=== PATIENT | female | born 1995 | race Caucasian/White ===

== ENCOUNTER 2019-12-12 12:55 | Emergency (ER) | payer BC, OTHER ==
[2019-12-12] MEDS ORDERED: KETOROLAC 60 MG/2 ML VIAL IM ONE (13:15)
[2019-12-12] MEDS ORDERED: diphenhydrAMINE 25 MG TAB (BENADRYL) PO ONE (13:15)
[2019-12-12] MEDS ORDERED: PROCHLORPERAZINE 10 MG/2ML INJ (COMPAZINE) IM ONE (13:15)
--- NOTE | 2019-12-12 13:55 | ED Headache ---
General Chief Complaint: Head/Cervical Problems Stated Complaint: HEADACHE;NAUSEA Nursing Triage Note: Started having headache at 1130 this morning. Took 1500 mg of tylenol without relief. States she gets migraines 2x monthly and this feels like a normal migraine. Pain is rated at 8/10 Nursing Sepsis Screen: No Definite Risk History of Present Illness Date Seen by Provider: Dec 12, 2019 Time Seen by Provider: 13:00 Initial Comments The patient is a 24-year-old female with a history of very frequent migraine headaches who presents for evaluation of a left sided, gradual onset migraine headache with onset over the last few hours. Associated photophobia, phonophobia and nausea. No associated fevers, vomiting, upper respiratory congestion/rhinorrhea, cough, focal weakness, numbness, tingling, neck stiffness/pain/meningismus (patient ranges her neck fully in all dimensions without discomfort or distress), vision changes, shortness of breath or chest pain, injury or trauma to her head recently. Patient states that this migraine feels very similar to the migraines that she frequently has to go to the ED for in [place] where she lives. Tylenol tried prior to arrival without relief of symptoms. Allergies and Home Medications Allergies Coded Allergies: No Known Drug Allergies (Unverified , 12/12/19) Patient Home Medication List Home Medication List Reviewed: Yes Review of Systems Review of Systems Constitutional: see HPI All Other Systems Reviewed Negative Unless Noted: Yes (Negative excepted noted.) Past Lszkgwk-Dgmhwd-Dqhydl Hx Past Med/Social Hx: Reviewed Nursing Past Med/Soc Hx Patient Social History Alcohol Use: Denies Use Recreational Drug Use: No Smoking Status: Never a Smoker 2nd Hand Smoke Exposure: No Recent Foreign Travel: No Contact w/Someone Who Travel: No Recent Infectious Disease Expo: No Recent Hopitalizations: No Physical Abuse: No Sexual Abuse: No Mistreated: No Fear: No Seasonal Allergies Seasonal Allergies: No Past Medical History Surgeries: Yes Adenoidectomy, Tonsillectomy Respiratory: No Cardiac: No Neurological: Yes Headaches /Migraines Genitourinary: No Gastrointestinal: No Musculoskeletal: No Endocrine: No HEENT: No Cancer: No Psychosocial: Yes Depression Family Medical History Reviewed Nursing Family Hx Physical Exam Vital Signs Vital Signs - First Documented 12/12/19 13:02 Pulse 75 Resp 16 B/P (MAP) 156/93 (114) Pulse Ox 98 Capillary Refill : Less Than 3 Seconds Height, Weight, BMI Height: '" Weight: lbs. oz. kg; BMI Method: General Appearance: no apparent distress Comments Young female appearing nontoxic and in no acute distress. Head is no cephalic and atraumatic. Neck is supple and nontender. Oropharynx is moist. Lungs are clear to auscultation at all stations. There is a normal S1 and S2 without rubs or gallops and capillary refill is appropriate, less than 2 seconds globally. Abdomen is soft, nontender nondistended. Skin is warm and dry without cyanosis, clubbing or edema. Psychiatrically, the patient didn't straights appropriate mood and affect and is alert. Neurologically, cranial nerves II through XII are intact and there are no lateralizing deficits noted. Speech is normal. Language is normal. Coordination is normal. There is no dysmetria with hevvcj-hi-yjet or pkre-bt-ylea bilaterally. Strength is 5 out of 5 in all joints of bilateral upper and lower extremity. Sensation is intact light touch in bilateral upper and lower extremity. The patient ambulates with a narrow, steady gait here in the emergency department. She is alert and oriented 4. Progress/Results/Core Measures Results/Orders My Orders Orders - YVONNE VALLEJO MD Prochlorperazine Injection (Compazine In (12/12/19 13:15) Diphenhydramine Tablet (Benadryl Tablet) (12/12/19 13:15) Ketorolac Injection (Toradol Injection) (12/12/19 13:15) Medications Given in ED Current Medications Medications Dose Ordered Sig/Rebekah Route Start Time Stop Time Status Last Admin Dose Admin Diphenhydramine HCl 25 mg ONCE ONCE PO 12/12/19 13:15 12/12/19 13:16 DC 12/12/19 13:16 25 MG Ketorolac Tromethamine 60 mg ONCE ONCE IM 12/12/19 13:15 12/12/19 13:16 DC 12/12/19 13:16 60 MG Prochlorperazine Edisylate 10 mg ONCE ONCE IM 12/12/19 13:15 12/12/19 13:16 DC 12/12/19 13:16 10 MG Vital Signs/I&O 12/12/19 13:02 Pulse 75 Resp 16 B/P (MAP) 156/93 (114) Pulse Ox 98 Blood Pressure Mean: 114 Progress Progress Note : Time: 13:56 Progress Note 24-year-old female who presents for acute on chronic left-sided headache which she states feels identical to her typical migraines. No red flags for headache today. Have treated with Compazine, Benadryl, Toradol and patient feels quite a bit better upon reassessment. Headache pain is considerably improved. She feels culpable going home. We will proceed with discharge home at this time. She is counseled that she feels worse is that of better or develops other new symptoms of concern that she will need to return to the emergency department immediately for reevaluation. All questions are answered. Departure Impression Primary Impression: Headache Qualified Codes: R51 - Headache Disposition: 01 HOME, SELF-CARE Condition: Improved Departure-Patient Inst. Patient Instructions: Headache, Adult (DC) Add. Discharge Instructions: Follow-up very closely with your primary care physician in the office in the next 2-4 days for reevaluation of your symptoms and a discussion of next best steps in care. As we discussed, you may wish to discuss with your primary doctor whether a medicine to prevent your headaches would be worthwhile. Drink plenty fluids and get plenty of rest. Return to the emergency department right away with worsening symptoms of any kind or with any other new symptoms of concern. YVONNE VALLEJO MD Dec 12, 2019 13:55
[2019-12-12 14:02] VITALS: BP 158/108
== END 2019-12-12 14:04 | disposition home or self-care (01) ==
LOC: ER FS 12:57
DX: R51.9 Headache, unspecified (principal)
CPT/HCPCS: 99284

== ENCOUNTER 2022-01-14 18:31 | Emergency (ER) | payer BC ==
[~2022-01-14] VITALS: Ht 172 cm; Wt 151.0 kg
--- NOTE | 2022-01-14 18:35 | ED Abdominal Pain ---
General Stated Complaint: ABD PAIN POST SURGERGY History of Present Illness Date Seen by Provider: Jan 14, 2022 Time Seen by Provider: 18:35 Initial Comments 26-year-old female presents with left upper quadrant abdominal pain. Patient reports that 4 days ago she had gastric bypass surgery at [facility] in [place]. Patient reports that she is got some nausea. That she was set on the couch late afternoon when the pain just became intense. She has tried her oxycodone with minimal relief along with her Levsin. She also had a Zofran earlier today. Allergies and Home Medications Allergies Coded Allergies: No Known Drug Allergies (Unverified , 12/12/19) Patient Home Medication List Home Medication List Reviewed: Yes Review of Systems Review of Systems Constitutional: No chills Respiratory: No Symptoms Reported Cardiovascular: No Symptoms Reported Gastrointestinal: See HPI, Abdominal Pain, Nausea Genitourinary: No Symptoms Reported Musculoskeletal: no symptoms reported Skin: no symptoms reported Psychiatric/Neurological: No Symptoms Reported Past Utttchz-Grlxqf-Cpltfd Hx Seasonal Allergies Seasonal Allergies: No Past Medical History Surgeries: Yes Adenoidectomy, Tonsillectomy Respiratory: No Cardiac: No Neurological: Yes Headaches /Migraines Genitourinary: No Gastrointestinal: No Musculoskeletal: No Endocrine: No HEENT: No Cancer: No Psychosocial: Yes Depression Physical Exam Vital Signs Vital Signs - First Documented 01/14/22 19:03 Temp 36.5 Pulse 106 Resp 16 B/P (MAP) 137/74 (95) Pulse Ox 99 Capillary Refill : Height/Weight/BMI Height: '" Weight: lbs. oz. kg; BMI Method: General Appearance: WD/WN, no apparent distress Respiratory: lungs clear, normal breath sounds Cardiovascular: normal peripheral pulses, regular rate, rhythm Gastrointestinal: soft, tenderness (Epigastric, left upper quad) Extremities: normal range of motion Neurologic/Psychiatric: alert, normal mood/affect, oriented x 3 Skin: normal color, warm/dry Progress/Results/Core Measures Results/Orders Lab Results Laboratory Tests Test 01/14/22 18:51 Range/Units White Blood Count 10.7 4.3-11.0 10^3/uL Red Blood Count 4.99 3.80-5.11 10^6/uL Hemoglobin 14.6 11.5-16.0 g/dL Hematocrit 43 35-52 % Mean Corpuscular Volume 86 80-99 fL Mean Corpuscular Hemoglobin 29 25-34 pg Mean Corpuscular Hemoglobin Concent 34 32-36 g/dL Red Cell Distribution Width 12.6 10.0-14.5 % Platelet Count 269 130-400 10^3/uL Mean Platelet Volume 10.8 9.0-12.2 fL Immature Granulocyte % (Auto) 0 % Neutrophils (%) (Auto) 59 42-75 % Lymphocytes (%) (Auto) 33 12-44 % Monocytes (%) (Auto) 6 0-12 % Eosinophils (%) (Auto) 1 0-10 % Basophils (%) (Auto) 1 0-10 % Neutrophils # (Auto) 6.3 1.8-7.8 10^3/uL Lymphocytes # (Auto) 3.6 1.0-4.0 10^3/uL Monocytes # (Auto) 0.7 0.0-1.0 10^3/uL Eosinophils # (Auto) 0.2 0.0-0.3 10^3/uL Basophils # (Auto) 0.1 0.0-0.1 10^3/uL Immature Granulocyte # (Auto) 0.0 0.0-0.1 10^3/uL Sodium Level 138 135-145 MMOL/L Potassium Level 3.6 3.6-5.0 MMOL/L Chloride Level 101 98-107 MMOL/L Carbon Dioxide Level 25 21-32 MMOL/L Anion Gap 12 5-14 MMOL/L Blood Urea Nitrogen 10 7-18 MG/DL Creatinine 0.67 0.60-1.30 MG/DL Estimat Glomerular Filtration Rate 125 BUN/Creatinine Ratio 15 Glucose Level 104 70-105 MG/DL Calcium Level 9.7 8.5-10.1 MG/DL Corrected Calcium 9.5 8.5-10.1 MG/DL Magnesium Level 1.9 1.6-2.4 MG/DL Total Bilirubin 0.4 0.1-1.0 MG/DL Aspartate Amino Transf (AST/SGOT) 13 5-34 U/L Alanine Aminotransferase (ALT/SGPT) 26 0-55 U/L Alkaline Phosphatase 58 40-136 U/L Total Protein 7.8 6.4-8.2 GM/DL Albumin 4.3 3.2-4.5 GM/DL Lipase 40 8-78 U/L Serum Test, Qualitative NEGATIVE NEGATIVE My Orders Orders - REEDER,THAO L DO Cbc With Automated Diff (01/14/22 18:42) Comprehensive Metabolic Panel (01/14/22 18:42) Lipase (01/14/22 18:42) Magnesium (01/14/22 18:42) Lactated Ringers (Lr 1000 Ml Iv Solution (01/14/22 18:42) Fentanyl Inj (Sublimaze Injection) (01/14/22 18:42) Promethazine Injection (Phenergan Injec (01/14/22 18:55) Ct Abdomen/Pelvis W (01/14/22 19:20) Hcg,Qualitative Serum (01/14/22 19:22) Iohexol Injection (Omnipaque 350 Mg/Ml 1 (01/14/22 19:30) Received Contrast (Hold Metformin- Contr (01/14/22 19:30) Ns (Ivpb) (Sodium Chloride 0.9% Ivpb Bag (01/14/22 19:30) Medications Given in ED Current Medications Medications Dose Ordered Sig/Rebekah Route Start Time Stop Time Status Last Admin Dose Admin Iohexol 100 ml ONCE ONCE IV 01/14/22 19:30 01/14/22 19:31 DC 01/14/22 19:43 100 ML Sodium Chloride 100 ml ONCE ONCE IV 01/14/22 19:30 01/14/22 19:31 DC 01/14/22 19:43 100 ML Vital Signs/I&O 01/14/22 19:03 Temp 36.5 Pulse 106 Resp 16 B/P (MAP) 137/74 (95) Pulse Ox 99 Progress Progress Note : Progress Note Patient with post surgical pain. No significant findings on CT or lab. Discussed with patient that she will need to call her bariatric surgeon in the morning if her symptoms continue. She has pain medicine at home that she can use. She is stable and discharged Diagnostic Imaging Diagonstic Imaging: CT Plain Films/CT/US/NM/MRI: abdomen Comments Date of Exam:01/14/22 CT ABDOMEN/PELVIS W PROCEDURE: CT abdomen and pelvis with contrast. TECHNIQUE: Multiple contiguous axial images were obtained through the abdomen and pelvis after administration of intravenous contrast. Auto Exposure Controls were utilized during the CT exam to meet ALARA standards for radiation dose reduction. All CT scans use one or more of the following dose optimizing techniques: automated exposure control, MA and/or KvP adjustment based on patient size and exam type or iterative reconstruction. INDICATION: Abdominal pain, postoperative evaluation. COMPARISON: None available. FINDINGS: Mild left basilar linear interstitial opacities. The right lung is clear. No significant hiatal hernia. The esophagus is not distended. Postsurgical changes are noted associated with the stomach. No significant focal fluid collection identified at this location. The gallbladder is mildly prominent without adjacent inflammatory stranding. The liver is enlarged measuring 22 cm in craniocaudal dimension. The liver is otherwise unremarkable. The spleen is mildly enlarged measuring near 15 cm in AP dimension. No focal splenic mass. The adrenal glands are unremarkable. The pancreas is unremarkable. The kidneys are unremarkable. No aneurysmal dilatation of the abdominal aorta. The appendix is unremarkable. The urinary bladder is unremarkable. The uterus and adnexal structures appear unremarkable for age. No bowel obstruction or pneumatosis. Trace free fluid. No free air. No significant adenopathy. No acute osseous abnormality. IMPRESSION: Postsurgical changes associated with the stomach and bowel without bowel obstruction or focal fluid collection or free air. Hepatosplenomegaly. Minimal left basilar atelectasis or less likely pneumonitis. Trace free fluid in the lower pelvis, favored to simply be physiologic. The gallbladder is slightly prominent in size without adjacent inflammatory stranding. Reviewed: Reviewed/Discussed Departure Impression Primary Impression: Postoperative abdominal pain Disposition: 01 HOME, SELF-CARE Condition: Stable Departure-Patient Inst. Referrals: ROSE BETHEA MD (PCP) Primary Care Physician Patient Instructions: Managing Pain After Surgery Add. Discharge Instructions: Please continue your already prescribed pain medicine. If you continue to have pain in the morning please call your bariatric surgeon for further recommendations. THAO REEDER DO Jan 14, 2022 18:35
[2022-01-14] MEDS ORDERED: fentaNYL INJ 100 MCG/2 ML AMP IVP STA (18:42)
[2022-01-14] MEDS ORDERED: LACTATED RINGERS 1,000 ML IV STA (18:42)
[2022-01-14 18:49] LABS: BASOPHILS # (AUTO) 0.1 10^3/uL (0.0-0.1); BASOPHILS % (AUTO) 1 % (0-10); EOSINOPHILS # (AUTO) 0.2 10^3/uL (0.0-0.3); EOSINOPHILS % (AUTO) 1 % (0-10); HEMATOCRIT 43 % (35-52); HEMOGLOBIN 14.6 g/dL (11.5-16.0); LYMPHOCYTES # (AUTO) 3.6 10^3/uL (1.0-4.0); LYMPHOCYTES % (AUTO) 33 % (12-44); MEAN CORPUSCULAR HEMOGLOBIN 29 pg (25-34); MEAN CORPUSCULAR HGB CONC 34 g/dL (32-36); MEAN CORPUSCULAR VOLUME 86 fL (80-99); MEAN PLATELET VOLUME 10.8 fL (9.0-12.2); MONOCYTES # (AUTO) 0.7 10^3/uL (0.0-1.0); MONOCYTES % (AUTO) 6 % (0-12); NEUTROPHILS # (AUTO) 6.3 10^3/uL (1.8-7.8); NEUTROPHILS % (AUTO) 59 % (42-75); PLATELET COUNT 269 10^3/uL (130-400); WHITE BLOOD COUNT 10.7 10^3/uL (4.3-11.0)
[2022-01-14] MEDS ORDERED: PROMETHAZINE INJ 25 MG/ML (PHENERGAN) AMP IVP STA (18:55)
[2022-01-14 19:13] LABS: ALBUMIN 4.3 GM/DL (3.2-4.5); BILIRUBIN,TOTAL 0.4 MG/DL (0.1-1.0); CALCIUM 9.7 MG/DL (8.5-10.1); CREATININE SERUM 0.67 MG/DL (0.60-1.30); MAGNESIUM 1.9 MG/DL (1.6-2.4); POTASSIUM 3.6 MMOL/L (3.6-5.0); TOTAL PROTEIN 7.8 GM/DL (6.4-8.2)
[2022-01-14] MEDS ORDERED: HOLD METFORMIN - RECEIVED CONTRAST 20 ML VIAL IV SCH (19:30)
[2022-01-14] MEDS ORDERED: IOHEXOL 350 MG/ML 100 ML (OMNIPAQUE 350) VIAL IV ONE (19:30)
[2022-01-14] MEDS ORDERED: NS 100 ML (IVPB) BAG IV ONE (19:30)
--- NOTE | 2022-01-14 20:24 | Diagnostic Imaging Report ---
PROCEDURE: CT abdomen and pelvis with contrast. TECHNIQUE: Multiple contiguous axial images were obtained through the abdomen and pelvis after administration of intravenous contrast. Auto Exposure Controls were utilized during the CT exam to meet ALARA standards for radiation dose reduction. All CT scans use one or more of the following dose optimizing techniques: automated exposure control, MA and/or KvP adjustment based on patient size and exam type or iterative reconstruction. INDICATION: Abdominal pain, postoperative evaluation. COMPARISON: None available. FINDINGS: Mild left basilar linear interstitial opacities. The right lung is clear. No significant hiatal hernia. The esophagus is not distended. Postsurgical changes are noted associated with the stomach. No significant focal fluid collection identified at this location. The gallbladder is mildly prominent without adjacent inflammatory stranding. The liver is enlarged measuring 22 cm in craniocaudal dimension. The liver is otherwise unremarkable. The spleen is mildly enlarged measuring near 15 cm in AP dimension. No focal splenic mass. The adrenal glands are unremarkable. The pancreas is unremarkable. The kidneys are unremarkable. No aneurysmal dilatation of the abdominal aorta. The appendix is unremarkable. The urinary bladder is unremarkable. The uterus and adnexal structures appear unremarkable for age. No bowel obstruction or pneumatosis. Trace free fluid. No free air. No significant adenopathy. No acute osseous abnormality. IMPRESSION: Postsurgical changes associated with the stomach and bowel without bowel obstruction or focal fluid collection or free air. Hepatosplenomegaly. Minimal left basilar atelectasis or less likely pneumonitis. Trace free fluid in the lower pelvis, favored to simply be physiologic. The gallbladder is slightly prominent in size without adjacent inflammatory stranding. Dictated by: Dictated on workstation # [id number]
[2022-01-14 20:33] VITALS: BP 132/62
== END 2022-01-14 20:34 | disposition home or self-care (01) ==
LOC: EDUNIT# 18:31 → ER FS 18:32
DX: G89.18 Other acute postprocedural pain (principal); R10.13 Epigastric pain; Z98.84 Bariatric surgery status; Z32.02 Encounter for pregnancy test, result negative
CPT/HCPCS: 36415; 74177; 80053; 83690; 83735; 84703; 85025; Q9967